=== PATIENT | female | born 1965 | race African-American/Black ===

== ENCOUNTER 2022-05-30 17:32 | Emergency (ER) | payer OTHER ==
[~2022-05-30] VITALS: Ht 157.5 cm; Wt 82.6 kg
[~2022-05-30 17:32] MED LIST: CEFADROXIL500 MG PO; KETO10TA2 PO
[2022-05-30] MEDS ORDERED: CLONAZEPAM0.5 M1 PO (18:10)
[2022-05-30] MEDS ORDERED: PROZAC20 MG PO (18:10)
[2022-05-30] MEDS ORDERED: AMBIEN10 MG PO (18:10)
[2022-05-30] MEDS ORDERED: HYDROCHLOROTHIA25 MG PO (18:11)
[2022-05-30] MEDS ORDERED: LISINOPRIL40 MG PO (18:11)
== END 2022-05-30 20:35 | disposition home or self-care (01) ==
LOC: ER 17:32
DX: S60.311A Abrasion of right thumb, initial encounter (principal); W54.0XXA Bitten by dog, initial encounter; Y93.9 Activity, unspecified; Y92.9 Unspecified place or not applicable